=== PATIENT | female | born 1990 | race Caucasian/White ===

== ENCOUNTER 2016-08-29 07:39 | Emergency (ER) | payer BC ==
[~2016-08-29] VITALS: Ht 165.1 cm; Wt 54.5 kg
[~2016-08-29 07:39] MED LIST: AVIATAB PO
[2016-08-29 07:43] VITALS: BP 114/77; PULSE 88; RESP 20; TEMP 98.8; O2SAT 100
[2016-08-29] MEDS ORDERED: [UNRECOGNIZED DRUG - REMARK] (07:56)
--- NOTE | 2016-08-29 08:26 | PD ---
HPI Chief Complaint: Musculoskeletal Complaint Time Seen by Provider: 07:56 Travel History International Travel<30 days: No Contact w/Intl Traveler<30days: No Traveled to known affect area: No History of Present Illness HPI This is a 26-year-old female who presents with neck and shoulder discomfort. The patient states that last night she drank 2 mixed drinks and went to bed. She states she slept very heavily. She states that when she woke up, she had numbness and tingling of her left arm. She states that is nearly resolved. She reports now that she has the sore muscles in her neck and shoulder. There is no reported trauma. There are no other reported complaints. PFSH Past Medical History Medical History: Denies Significant Hx Diminished Hearing: No Influenza Vaccination: No ?: Not LMP: 08/21/16 : 0 Past Surgical History Surgical History: No Previous Surgery Social History Alcohol Use: Yes (SOCIALLY) Tobacco Use: No Substance Use: No Allergies-Medications (Allergen,Severity, Reaction): Coded Allergies: No Known Allergies (Verified , 08/29/16) Reported Meds & Prescriptions Reported Meds & Active Scripts Active Reported [Unknow Control] Review of Systems Except as stated in HPI: all other systems reviewed are Neg General / Constitutional: No: Fever, Chills HENT: Positive: Neck Pain (left lateral moving to her shoulder), No: Headaches , Lightheadedness, Neck Stiffness Cardiovascular: No: Chest Pain or Discomfort, Palpitations Respiratory: No: Cough, Shortness of Breath Gastrointestinal: Positive: Nausea (patient is anxious and says she feels nauseous), No: Abdominal Pain Musculoskeletal: Positive: Pain (left lateral neck and shoulder), No: Weakness Neurologic: Positive: Other (numbness and tingling of her left arm that has resolved), No: Weakness, Ataxia, Headache Physical Exam Narrative GENERAL: Well-developed well-nourished female in no acute respiratory distress. SKIN: Focused skin assessment warm/dry. HEAD: Atraumatic. Normocephalic. EYES: No scleral icterus. No injection or drainage. ENT: No nasal bleeding or discharge. Mucous membranes pink and moist. NECK: Trachea midline. No JVD. Supple. Subjective "tightness" in her left lateral neck to her left clavicle/shoulder area. CARDIOVASCULAR: Regular rate and rhythm. No murmur appreciated. RESPIRATORY: No accessory muscle use. Clear to auscultation. Breath sounds equal bilaterally. GASTROINTESTINAL: Abdomen soft, non-tender, nondistended. MUSCULOSKELETAL: No obvious deformities. No clubbing. No cyanosis. No edema. NEUROLOGICAL: Awake and alert. No obvious cranial nerve deficits. Motor grossly within normal limits. Normal speech. Data Data Last Documented VS Vital Signs Date Time Temp Pulse Resp B/P Pulse Ox O2 Delivery O2 Flow Rate FiO2 08/29/16 07:43 98.8 88 20 114/77 100 Room Air Orders Spine, Cervical Compl([id number]) (08/29/16 07:56) Complete Blood Count With Diff (08/29/16 07:56) Basic Metabolic Panel (Bmp) (08/29/16 07:56) Labs Laboratory Tests Test 08/29/16 08:08 White Blood Count 6.3 TH/MM3 Red Blood Count 4.44 MIL/MM3 Hemoglobin 13.2 GM/DL Hematocrit 40.1 % Mean Corpuscular Volume 90.4 FL Mean Corpuscular Hemoglobin 29.7 PG Mean Corpuscular Hemoglobin 32.8 % Concent Red Cell Distribution Width 12.8 % Platelet Count 246 TH/MM3 Mean Platelet Volume 8.4 FL Neutrophils (%) (Auto) 64.4 % Lymphocytes (%) (Auto) 24.5 % Monocytes (%) (Auto) 8.5 % Eosinophils (%) (Auto) 2.2 % Basophils (%) (Auto) 0.4 % Neutrophils # (Auto) 4.1 TH/MM3 Lymphocytes # (Auto) 1.5 TH/MM3 Monocytes # (Auto) 0.5 TH/MM3 Eosinophils # (Auto) 0.1 TH/MM3 Basophils # (Auto) 0.0 TH/MM3 CBC Comment DIFF FINAL Differential Comment Sodium Level 138 MEQ/L Potassium Level 4.1 MEQ/L Chloride Level 105 MEQ/L Carbon Dioxide Level 28.3 MEQ/L Anion Gap 5 MEQ/L Blood Urea Nitrogen 11 MG/DL Creatinine 0.86 MG/DL Estimat Glomerular Filtration 79 ML/MIN Rate Random Glucose 91 MG/DL Calcium Level 8.9 MG/DL [facility] Medical Decision Making Medical Screen Exam Complete: Yes Emergency Medical Condition: Yes Differential Diagnosis Nerve palsy versus musculoskeletal strain versus herniated nucleus pulposus Narrative Course 26-year-old female who presents with neck tightness and soreness on the left side. Patient states that when she woke up this morning after heavy sleep, she had numbness and tingling to her left arm. She states that has since resolved. She does give history that she had 2 mixed drinks last night before going to bed. The patient has no focal neurologic deficits on my examination. She is subjectively tender in her left upper trapezius muscle distribution. Cervical spine x-ray show no evidence of acute findings. The patient thought she also may be dehydrated however BUN and creatinine and the rest of her electrolytes are within normal limits. I believe that she likely fell asleep on her arm and that's what causes the numbness and tingling that has since resolved. She states that she's sleeps with her neck twisted and this is likely the cause of her neck discomfort. She'll be discharged with a prescription for Arthrotec 50 twice a day 10 days. She is instructed to use moist heat as needed. Diagnosis Primary Impression: Cervical strain Additional Impression: left arm numbness and tingling likely secondary to nerve compression. Additional Instructions: Moist heat. Return if symptoms return. Avoid sleeping on arm. Med/Other Pt SpecificInfo: Prescription(s) given Scripts Diclofenac-Misoprostol (Arthrotec 50)50-0.2 Mg Tab1 Tab PO BID #10 TAB Ref 0 Prov:Carlos Khan MD 08/29/16 Disposition: 01 DISCHARGE HOME Condition: Stable Carlos Khan MD August 29, 2016 08:26
--- NOTE | 2016-08-29 08:30 | RADRPT ---
EXAM DATE/TIME: 08/29/2016 08:25 [facility] COMPARISON: No previous studies available for comparison. INDICATIONS : Neck pain, numbness. MEDICAL HISTORY : Degenerative disc disease SURGICAL HISTORY : None. ENCOUNTER: Initial ACUITY: 1 week PAIN SCORE: 7/10 LOCATION: Bilateral cervical spine FINDINGS: Five view examination was performed. There is normal alignment and curvature of the vertebral bodies down to the level of C7. No evidence of fracture or subluxation. Vertebral body height is normal. The disc spaces are maintained. The prevertebral soft tissues are of normal thickness. The atlanto -axial articulation is intact. The bony neural foramen are patent bilaterally. CONCLUSION: Unremarkable examination of the cervical spine. Valentín Lopez MD on August 29, 2016 at 8:28 Board Certified Radiologist. This report was verified electronically.
[2016-08-29 08:31] LABS: AUTOMATED NEUTROPHIL # 4.1 TH/MM3 (1.8-7.7); BASOPHIL % 0.4 % (0.0-2.0); EOSINOPHIL # 0.1 TH/MM3 (0-0.4); EOSINOPHIL % 2.2 % (0.0-4.0); HEMATOCRIT 40.1 % (35.0-46.0); HEMO FLAGS DIFF FINAL; LYMPH % 24.5 % (9.0-44.0); LYMPHOCYTE # 1.5 TH/MM3 (1.0-4.8); MEAN CELL VOLUME 90.4 FL (80.0-100.0); MEAN CORPUSCULAR HEMOGLOBIN 29.7 PG (27.0-34.0); MEAN CORPUSCULAR HGB CONC 32.8 % (32.0-36.0); MONO % 8.5 % (0.0-8.0); NEUT % 64.4 % (16.0-70.0); PLATELET COUNT 246 TH/MM3 (150-450); RED BLOOD COUNT 4.44 MIL/MM3 (4.00-5.30); RED CELL DISTRIBUTION WIDTH 12.8 % (11.6-17.2); WHITE BLOOD COUNT 6.3 TH/MM3 (4.0-11.0)
[2016-08-29 08:50] LABS: BICARBONATE 28.3 MEQ/L (21.0-32.0); POTASSIUM 4.1 MEQ/L (3.5-5.1)
[2016-08-29] MEDS ORDERED: ARTHTAB2 PO (09:02)
== END 2016-08-29 09:17 | disposition home or self-care (01) ==
LOC: NEPC 07:39
DX: S16.1XXA Strain of muscle, fascia and tendon at neck level, initial encounter (principal); R20.2 Paresthesia of skin; R20.0 Anesthesia of skin; R11.0 Nausea
CPT/HCPCS: 72050; 80048; 85025; 99284